=== PATIENT | male | born 1975 | race Hispanic/Latino ===

== ENCOUNTER 2016-09-06 10:43 | Emergency (ER) | payer MEDICARE ==
[2016-09-06 10:52] VITALS: TEMP 98
[2016-09-06] MEDS ORDERED: Sodium Chloride 0.9% 1,000 ML IV STA (11:53)
[2016-09-06 12:23] LABS: BASO # 0.1 K/uL (0.0-0.2); BASO % 0.5 % (0.0-2.0); EOS # 0.2 K/uL (0.0-0.7); EOS % 1.6 % (0.0-4.0); HEMATOCRIT 47.4 % (35.0-51.0); LYMPH % 17.7 % (20.0-40.0); MEAN CELL VOLUME 87.5 fl (80.0-94.0); MEAN CORPUSCULAR HEMOGLOBIN 29.5 pg (27.0-31.0); MEAN CORPUSCULAR HGB CONC 33.8 g/dL (33.0-37.0); MONO # 1.5 K/uL (0.0-0.8); NEUT # 7.7 K/uL (1.8-7.0); NEUT % 67.2 % (50.0-75.0); NRBC % 0.1 % (0.0-0.0); RED CELL DISTRIBUTION WIDTH 13.4 % (11.5-14.5); WHITE BLOOD COUNT 11.4 K/uL (4.8-10.8)
[2016-09-06 12:35] LABS: ALB/GLOB RATIO 1.4 (1.0-2.1); ALKALINE PHOSPHATASE 49 U/L (38-126); ALT/SGPT 54 U/L (21-72); AST/SGOT 29 U/L (17-59); BILIRUBIN,TOTAL 0.4 mg/dl (0.2-1.3); BLOOD UREA NITROGEN 12 mg/dl (9-20); CALCIUM 9.1 mg/dL (8.4-10.2); CARBON DIOXIDE 29 mmol/L (22-30); CHLORIDE 102 mmol/L (98-107); GFR AFRICAN-AMERICAN > 60; GLUCOSE,RANDOM 100 mg/dL (75-110); SODIUM 143 mmol/l (132-148); TOTAL PROTEIN 7.7 G/DL (6.3-8.2)
--- NOTE | 2016-09-06 13:19 | RAD ---
PROCEDURE: Radiographs of the left elbow. HISTORY: L distal arm pain numbness COMPARISON: Comparison made with concurrent radiographs of the left forearm FINDINGS: BONES: Normal. No fracture. JOINTS: Normal. No osteoarthritis. SOFT TISSUES: Normal. JOINT EFFUSION: No significant anterior or obvious posterior joint effusion OTHER FINDINGS: None IMPRESSION: No evidence of acute displaced fracture nor dislocation.
--- NOTE | 2016-09-06 13:21 | RAD ---
PROCEDURE: Radiographs of the Left Forearm HISTORY: L distal arm pain numbness COMPARISON: Comparison made with concurrent radiographs left elbow. TECHNIQUE: Frontal and lateral views obtained. FINDINGS: BONES: No fracture or destructive lesion. JOINT SPACES: Unremarkable. OTHER FINDINGS: None. IMPRESSION: Unremarkable radiographs of the left forearm.
--- NOTE | 2016-09-06 13:22 | RAD ---
PROCEDURE: Left Wrist Radiographs. HISTORY: L distal arm pain numbness COMPARISON: None. FINDINGS: BONES: Normal. No fracture. JOINTS: Normal. No dislocation. SOFT TISSUES: Normal. OTHER FINDINGS: None. IMPRESSION: No evidence acute displaced fracture nor dislocation.
--- NOTE | 2016-09-06 13:22 | RAD ---
PROCEDURE: Left Index finger radiographs. HISTORY: L distal arm pain numbness COMPARISON: Comparison made with concurrent radiographs of the left wrist and left forearm. TECHNIQUE: AP radiograph of the left hand performed. FINDINGS: Dwaine LEFT INDEX FINGER: Normal left index finger, without fracture or focal lesion. Remainder of the left hand (as seen on the AP view) grossly intact. JOINTS: Normal. SOFT TISSUES: Normal. OTHER FINDINGS: None. IMPRESSION: No evidence of acute displaced fracture nor dislocation.
--- NOTE | 2016-09-06 14:29 | ED PDOC ---
Upper Extremity Pain/Injury Time Seen by Provider: 09/06/16 11:35 Chief Complaint (Nursing): Upper Extremity Problem/Injury Chief Complaint (Provider): left hand pain History Per: Patient History/Exam Limitations: no limitations Onset/Duration Of Symptoms: Days (1) Current Symptoms Are (Timing): Still Present Severity: Moderate Exacerbating Factor(s): Strenuous Use Of Affected Area Additional Complaint(s): 41yo male hx back problems presents from PMD Dr Pickens office w Left arm and hand pain, states he awoke with it, denies trauma or known injury. States slept "like he was in a coffin", with arms draped over chest, denies alcohol or drug abuse, denies sleeping awkwardly with arm under him. States feels parasthesias to left hand but denies weakness. Denies headache, neck pain, fever or skin changes to arm. Past Medical History Reviewed: Historical Data, Nursing Documentation, Vital Signs Vital Signs: Last Vital Signs Temp 98.0 F 09/06/16 10:51 Pulse 79 09/06/16 10:51 Resp 20 09/06/16 10:51 BP 159/106 H 09/06/16 10:51 Pulse Ox 99 09/06/16 10:51 - Medical History PMH: Back Problems, HTN - Family History Family History: States: Unknown Family Hx - Social History Current smoker - smoking cessation education provided: Yes Alcohol: None Drugs: Denies - Home Medications Home Medications: Ambulatory Orders Medication Instructions Recorded Naproxen [Naprosyn] 500 mg PO BID PRN #14 tablet 09/06/16 - Allergies Allergies/Adverse Reactions: Allergies Allergy/AdvReac Type Severity Reaction Status Date / Time No Known Allergies Allergy Verified 09/06/16 11:22 Review of Systems ROS Statement: Except As Marked, All Systems Reviewed And Found Negative Constitutional: Negative for: Fever, Chills ENT: Negative for: Ear Discharge Cardiovascular: Negative for: Chest Pain, Palpitations Respiratory: Negative for: Cough, Shortness of Breath Gastrointestinal: Negative for: Nausea, Vomiting Genitourinary Male: Negative for: Dysuria, Frequency Musculoskeletal: Positive for: Arm Pain, Hand Pain. Negative for: Neck Pain, Shoulder Pain, Back Pain, Leg Pain, Foot Pain Skin: Negative for: Rash, Lesions, Jaundice Neurological: Negative for: Weakness, Numbness, Confusion, Seizures, Headache, Dizziness Physical Exam - Reviewed Nursing Documentation Reviewed: Yes Vital Signs Reviewed: Yes - Physical Exam Appears: Positive for: Well, Non-toxic, No Acute Distress Head Exam: Positive for: ATRAUMATIC, NORMAL INSPECTION, NORMOCEPHALIC Skin: Positive for: Normal Color, Warm, DRY Eye Exam: Positive for: EOMI, Normal appearance, PERRL ENT: Positive for: Normal ENT Inspection Neck: Positive for: Normal, Painless ROM Cardiovascular/Chest: Positive for: Regular Rate, Rhythm. Negative for: Irregularly Irregular Respiratory: Positive for: CNT, Normal Breath Sounds Extremity: Positive for: Other (L arm mild wrist drop, +intact interosseous function, +radial pulse, cap refill <2sec, no thenar wasting or tenderness, mild pain w ROM left wrist; elbow normal active/passive ROM; shoulder normal ROM nontender) Neurologic/Psych: Positive for: Alert, Oriented - Laboratory Results Result Diagrams: 09/06/16 12:15 09/06/16 12:15 - ECG O2 Sat by Pulse Oximetry: 99 Medical Decision Making Medical Decision Making: workup initiated for L arm/hand palsy vs compartment syndrome vs central process vs infectious process. XRays, labs including tot CK and ESR ordered. XRays reviewed and read by radiologist, no acute fracture or dislocation labs reviewed, normal WBC, normal CK and normal ESR. Hand surgery magnetic resonance imaging coordinator Dr Morelos consulted, who examined patient at bedside approx 215pm, states likely a palsy- recommends volar splint and followup in office in one week. D/w PMD Dr Pickens, will followup for improvement in 1-2 days. Pt given instructions for followup and indications for return to ER including worsening pain, fever, redness, swelling, numbness or tingling. Rx naprosyn. Disposition - Clinical Impression Clinical Impression: Acute radial nerve palsy of left upper extremity - Patient ED Disposition Is Patient to be Admitted: No Counseled Patient/Family Regarding: Studies Performed, Diagnosis, Need For Followup, Rx Given - Disposition Referrals: Maco Curry MD [Medical Doctor] - Disposition: Routine/Home Disposition Time: 14:50 Condition: STABLE Additional Instructions: Followup with hand specialist Dr Maco Morelos in one week. See Dr Pickens in 3 days for followup to assure improvement. Return to ER immediately for swelling, weakness, worse pain, numbness or any concern. Keep arm elevated when resting, above the level of your heart. Prescriptions: Naproxen [Naprosyn] 500 mg PO BID PRN #14 tablet PRN Reason: Pain, Moderate (4-7) Instructions: Radial Nerve Palsy (ED), Arm Pain (ED) Forms: [employer] (Turkish)
[2016-09-06 14:42] VITALS: BP 165/95; PULSE 72; RESP 18
[2016-09-06 15:02] VITALS: O2SAT 99
--- NOTE | 2016-09-06 19:27 | CON ---
DATE: 09/06/2016 REASON FOR CONSULTATION: Left forearm pain, nerve pain and immobility. HISTORY OF PRESENT ILLNESS: A 41-year-old right hand dominant male with a history of back pain who w tom up this morning with inability to extend his wrist and severe pain. He came to the [facility] for evaluation. He denies any prior history of trauma or wrist problems in the past. He said he h ad a history of right-sided carpal tunnel. The patient states he slept normally in his bed and woke up with stiffness and pain. Denies prior drinking or trauma to the hand. Denies recent sickness. PHYSICAL EXAMINATION EXTREMITIES: Left upper extremity, the skin is intact. There is mild swelling over the hand. The p atient has increased tenderness to light touch over the dorsum of the left hand. Muscle strength is 5/5 in biceps, triceps, deltoids. The patient has no active wrist extension and weak finger extensio n. Finger flexion is about 3/5. The arm, forearm and hand compartments are soft and compressible. Distal pulses +2. Reflexes are 2+. ASSESSMENT: Left upper extremity radial and nerve palsy. PLAN: I discussed the above findings with the patient and the primary team. I advised the patient t o continue with conservative therapy, activity modification, anti-inflammatory medication and wrist s plinting. I will see the patient in my office in 3-4 days and will follow up. Maco Curry M.D. cc: [id number] TT: 09/06/2016 19:26:55 Confirmation # [id number] Dictation # [id number]
== END 2016-09-06 14:39 | disposition home or self-care (01) ==
LOC: H.ER 10:43
DX: G56.30 Lesion of radial nerve, unspecified upper limb (principal); R20.0 Anesthesia of skin; I10 Essential (primary) hypertension; F17.200 Nicotine dependence, unspecified, uncomplicated
CPT/HCPCS: 73080; 73090; 73110; 73140; 80053; 82550; 85025; 85651; 96361; 96374; 99285; J1885; J7040